=== PATIENT | female | born 2005 | race Caucasian/White ===

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

== ENCOUNTER 2025-01-30 09:37 | Outpatient (CLI) | payer OTHER, SELFPAY ==
--- OUTSIDE RECORDS SUMMARY | 2019-11-22 10:00 | XMS_ITS | Continuity of Care Document ---
Author Organization [facility] Address [address] [place] [address] Phone Care Team Providers Care Public Relations Consultant Name Role Phone Luis PT,MPT,ATC, Anjum Unavailable Unavai lable Procedures Procedure Date Therapeutic Activities Therapeutic Exercise Therapeutic Activities Therapeutic Exercise PT Evaluation Moderate Complexity Therapeutic Activities Therapeutic Exercise Advance Directives Directive Yes / No Effective Date File Name No Information Encounters Encounter Description Practice Location Reason(s) For Visit Diagnoses Date Provider Providers Copied on Encounter [facility], [place], [place], [id number], tel:[phone] [place] No Information 0 Luis [place], [place]. Referring Provider: Karina Rai, [address] [place], [address]. tel:[phone] [facility] [address], [place], [place], [id number], tel:[phone] [place] No Information 0 Luis [place], [place]. Referring Provider: Karina Rai, [address] [place], [address]. tel:[phone] [facility] [address], [place], [place], [id number], tel:[phone] [place] No Information 0 Luis Casillas , [place], [place]. Referring Provider: Karina Rai, [address] [place], [address]. tel:[phone] Family History Family Member Type Diagnosis Age At Onset No Information Payers Payer name Insurance type Covered republican ID Authoriza ticarlos(s) [facility] [id number] Social History Type Description Quantity Date Captured Comments Sex Female Smoking Status No Information Chief Complaint And Reason For Visit No Information Reason For Referral Reason For Referral No Information History Of Present Illness Encounter Date Complaint History Of Prese nt Illness No Information Functional Status Date Functional Assessmen t No Information Instructions Date Instruction Additional Infor mation No Information Assessments Type Assessment Date No Information Patient Care Teams Name Effective Dates (start - stop) Status Members No Information
[2025-01-30 12:59] LABS: Hematocrit 43.0 % (37.0-47.0); Hemoglobin 13.5 g/dL (12.0-15.0); Immature Granulocyte Percent A 0.3 % (0-0.5); Lymphocytes Absolute Auto 3.10 K/mm3 (0.9-3.2); Mean Corpuscular HGB Conc 31.4 g/dl (32-36); Mean Corpuscular Hemoglobin 28.0 pg (26-34); Mean Corpuscular Volume 89.0 fl (80-100); Nucleated Red Blood Cells Absolute Auto 0.000 K/mm3 (0.0-0.012); Nucleated Red Blood Cells Perc 0.0 % (0.0-0.2); Platelet Count Result 340 k/mm3 (150-375); Red Blood Count 4.83 M/mm3 (4.2-5.4); White Blood Count 9.0 K/mm3 (4.5-10.0)
[2025-01-30 13:07] LABS: Alanine Aminotransferase 24 U/L (6-35); Albumin Level 4.4 g/dL (3.5-5.1); Alkaline Phosphatase 78 U/L (38-126); Anion Gap 9 mmol/L (4-12); Aspartate Amino Transferase 47 U/L (14-36); Bilirubin,Total 0.5 mg/dL (0.2-1.3); Blood Urea Nitrogen 11 mg/dL (7-17); Calcium 9.4 mg/dL (8.4-10.2); Carbon Dioxide 22 mmol/L (22-30); Chloride 106 mmol/L (98-107); Estimated Glomerular Filt Rate > 60; Glucose 89 mg/dL (65-110); Potassium 4.5 mmol/L (3.4-5.0); Sodium 137 mmol/L (137-145); Total Protein 8.1 g/dL (6.3-8.2)
[2025-01-30 13:33] LABS: Hemoglobin A1C 5.1 % (<5.7)
[2025-01-30 13:43] LABS: Thyroid Stimulating Hormone 1.840 uIU/mL (0.465-4.680)
--- OUTSIDE RECORDS SUMMARY | 2025-01-30 18:04 | XMS_ITS | Clinical Summary ---
Author Organization [facility] Address [address] [address] Care Team Providers Care Cofounder Name Role Phone Erum Young MD Primary Care Provider [phone] Source Comments [facility],non-owned Affiliates and Associated Physician Practices is amultiple site organization consisting of ambulatory clinics and hospital sitesin [place], [place]. This disclosure is being madepursuant to the Care Everywhere program and may not contain all information available regarding this patient. Last updated 17.[facility] Medications * Be aware that medications may not be up to date on this document. Alwaysverify current medications with the patient. cetirizine (ZYRTEC) 10 MG tablet Take 10 mg by mouth once daily Active diphenhydrAMINE (BENADRYL) 25 MG tablet Take by mouth every 4 hours as needed for Itching Active Active Problems Problem Noted Date Diagnosed Date Closed fracture of distal en d of right radius with routine healing 12/29/2015 Chest pain Resolved Problems Problem Noted Date Diagnosed Date Resolved Date Closed fracture of distal end of right radius 11/10/19 16 12/29/2015 Social History Tobacco Use Types Packs/Day Years Used Date Smoking Tobacco: Never Alcohol Use Standard Drinks/Week Comments No 0 (1 standard drink = 0.6 oz pur e alcohol) Comments No Sex and Gender Information Value Date Recorded Sex Assigned at Not on file Legal Sex Female 12:15 PM CDT Gender Identity Not on file Sexual Orientation Not on file Last Filed Vital Signs Vital Sign Reading Time Taken Comments Blood Pressure 151/70 11/04/2015 4:30 PM CDT Pulse 90 11/04/2015 5:45 PM CDT Temperature 36.9 C (98.4 F) 11/04/2015 5:45 PM CDT Respiratory Rate 20 11/04/2015 5:45 PM CDT Oxygen Saturation 99% 11/04/2015 5:45 PM CDT Inhaled Oxygen Concentration - - Weight 90 kg (198 lb 6.6 oz) 12/29/2015 8:37 AM CDT Height 159.2 cm (5' 2.68) 12/29/2015 8:37 AM CD T Body Mass Index 35.51 12/29/2015 8:37 AM CDT Plan of Treatment Health Maintenance Due Date Last Done Comments HIV SCREENING 01/12/2020 HPV VACCINE (1 - 3-dose series) 01/12/2020 CHLAMYDIA/GONORRHEA SCREENING 2021 MENINGOCOCCAL (Group B) VACC INE SHARED DECISION-MAKING (1 of 2 - Standard) 2021 HEPATITIS C SCREENING 01/07/2023 DTAP/TDAP/TD VACCINES (1 - Tdap) 01/12/2024 HEPATITIS B VACCINE (1 of 3 - 19+ 3-dose series) 01/12/2024 DEPRESSION SCREENING 03/27/2024 COVID-19 VACCINE (1 - 2023-2 5 season) 2024 INFLUENZA VACCINE (#1) 2024 ZOSTER VACCINE (1 of 2) 2055 HIB VACCINE Aged Out No longer eligi ble based on patient's age to complete this topic MENINGOCOCCAL GROUPS A/C/Y/W VACCINE Aged Out No longer eligible b ased on patient's age to complete this topic PNEUMOCOCCAL VACCINE Aged Out No long er eligible based on patient's age to complete this topic Insurance [facility] Care Teams Cofounder Relationship Specialty Start Date End Date Erum Young MD [address] [place] [address] [address] [place] [address] PCP - General Pediatrics 11/04/15
--- OUTSIDE RECORDS SUMMARY | 2025-01-30 18:04 | XMS_ITS | Clinical Summary ---
Author Organization [facility] Address [address] [place] [address] Care Team Providers Care Sonoscope Operator Name Role Phone Erum Young MD Primary Care Provider [phone] Allergies Active Allergy Reactions Criticality Noted Date Comments Tree Nuts Anaphylaxis,Unknown High 05/31/2019 Medications Shannan 24 Fe 1 mg-20 mcg (24)/75 mg (4) per tablet 1 Active traZODone (DESYREL) 50 mg tablet 3 Active calcium citrate-vitamin D2 250 mg-2.5 mcg (100 unit) per tablet Take 1 tablet by mouth 2 (two) times a day Active cholecalciferol (VITAMIN D-3) 5,000 unit capsule daily Active BD Ultra-Fine Short Pen Needle 31 gauge x 5/16 needle 3 Active zonisamide (ZONEGRAN) 100 mg capsule 1 cap orally nightly for 30 days 4 Active ashwagandha extract 120 mg capsule Take by mouth Active magnesium gluconate 200 mg tabletIndication s:hypomagnesemia 1 tablet (200 mg total) Active metFORMIN XR (GLUCOPHAGE XR) 500 mg 24 hr tabletIndication s:PCOS (polycystic ovarian syndrome),Insuli n resistance Take 1 tablet (500 mg total) by mouth 2 (two) times a day after breakfast and dinner 180 tablet 3 4 Active Additional Information Patient not taking.Reported on 12/31/[address] (CYMBALTA) 30 mg capsule Take 1 capsule (30 mg total) by mouth daily [address] (CYMBALTA) 60 mg capsule 4 Active Emgality Pen 120 mg/mL pen injector 1 INJECTION MAINTENANCE DOSE UNDER THE SKIN EVERY 4 WEEKS 4 Active buPROPion XL (WELLBUTRIN XL) 300 mg 24 hr tablet daily Active busPIRone (BUSPAR) 5 mg tablet Take 1 tablet (5 mg total) by mouth 2 (two) times a day 5 Active EPINEPHrine 0.3 mg/0.3 mL auto-injection syringe 5 Active hydrOXYzine (ATARAX) 10 mg tablet daily Active ketoconazole 1 % shampooIndicatio ns:Seborrheic dermatitis of scalp Shampoo daily, leave on for 5-10 minutes, then rinse. 120 mL 2 5 01/01/20 26 Active triamcinolone (KENALOG) 0.1 % creamIndications :Skin Inflammation Apply topically 2 (two) times a day 30 g 5 Active Active Problems Problem Noted Date Diagnosed Date PCOS (polycystic ovarian syndrome) 07/02/2023 Assessment & Plan (07/02/2023 11:03 PM CDT): Counseled on healthy lifestyle habits Recommend to work fat loss goal Take metformin XR 500 mg oral twice a day Continue OCP pills Morbid obesity with BMI of 45.0-49.9, adult 09/2023 Assessment & Plan (07/02/2023 11:03 PM CDT): Counseled on encouraged to work on healthy lifestyle habits Chronic sinusitis 12/06/2022 Allergic rhinitis due to animal hair and dander 06/28/2022 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 06/28/2022 Chest pain 06/28/2022 Allergic rhinitis 06/28/2022 Dermatitis due to food taken internally 06/29/19 23 Closed fracture of distal en d of right radius with routine healing 12/29/2015 Encounters Date Type Department Care Team Description 12/31/2024 4:00 PM CDT Office Visit [facility] at [address] [address] Chelsea Parisi, PERSONAL ASSISTANT Seborrheic dermatitis of scalp (Primary Dx) from Last 3 Months Medical History Medical History Date Comments PCOS (polycystic ovarian syndrome) Morbid obesity with BMI of 45.0-49.9, adult (HCC ) Family History Medical History Relation Name Comments Diabetes Father Hypertension Father Migraines Father Diabetes Other Hypertension Other Relation Name Status Comments Father Other Social History Tobacco Use Types Packs/Day Years Used Date Smoking Tobacco: Never Smokeless Tobacco: Never Comments Unknown Sex and Gender Information Value Date Recorded Sex Assigned at Not on file 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 Gender Identity Not on file Sexual Orientation Not on file Last Filed Vital Signs Vital Sign Reading Time Taken Comments Blood Pressure 126/82 12/31/2024 3:45 PM CDT Pulse 89 12/31/2024 3:45 PM CDT Temperature 36.6 C (97.8 F) 12/31/2024 3:45 PM CDT Respiratory Rate 16 12/31/2024 3:45 PM CDT Oxygen Saturation 98% 12/31/2024 3:45 PM CDT Inhaled Oxygen Concentration - - Weight 131.5 kg (290 lb) 12/31/2024 3:45 PM CDT Height 167.6 cm (5' 6) 07/31/2023 9:25 AM CDT Body Mass Index 46.81 07/31/2023 9:25 AM CDT Plan of Treatment Health Maintenance Due Date Last Done Comments Depression Screening 2005 Hepatitis C Screening 2005 Meningococcal B Vaccine (2 of 2 - Bexsero SCDM 2-dose series) 08/17/2021 02/17/2021, 02/17/2021 Regular Well Visit/Exam 18-64 2023 Covid-19 Vaccine ( season) 2024 04/14/2021, 09/03/2020, 08/09/2020 Influenza Vaccine (#1) 2024 , 01/07/2020, 01/30/2019, Additional history exists DTaP/Tdap/Td Vaccine (7 - Td or Tdap) 12/21/2025 12/22/2015, 06/30/2010, 07/13/2006, Additional history exists Hepatitis B Screening Completed 2005 , 2005, 2005 Varicella Vaccines Completed 06/30/2010, 01/18/2006 Meningococcal Vaccine Aged Out 10/24/2016 No fabienne duyen eligible based on patient's age to complete this topic HPV Vaccines Completed 01/30/2019, 01/22/2018 Pneumococcal vaccine <65 Completed 023, 01/18/2006, 2005, Additional history exists Insurance [facility]/PPO Address: [address] [place] [address] [facility] CHOICE PLUS [facility] HMO/PPO Address: [address] [address] [place] [id number] [facility] CHOICE [employer] H[facility]/PPO Address: [address] [address] [place] [address] [place] [address] [facility] CHOICE PLUS [facility] H[facility]/PPO Address: [address] [place] [address] Care Teams Sonoscope Operator Relationship Specialty Start Date End Date Erum Young MD [address] [place] [address] PCP - General Pediatrics 06/03/20
--- OUTSIDE RECORDS SUMMARY | 2025-01-30 18:04 | XMS_ITS | Encounter Summary ---
Author Organization [employer] Address 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
--- OUTSIDE RECORDS SUMMARY | 2025-01-30 18:04 | XMS_ITS | Encounter Summary ---
Author Organization [employer] Address 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
--- OUTSIDE RECORDS SUMMARY | 2025-01-30 18:04 | XMS_ITS | Encounter Summary ---
Author Organization [employer] Address 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
--- OUTSIDE RECORDS SUMMARY | 2025-01-30 18:04 | XMS_ITS | Clinical Summary ---
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
== END 2025-01-30 09:38 | disposition home or self-care (01) ==
LOC: ANHGOSHLAB 09:38
PROVIDERS: PCP Nurse Practitioner; Visit Provider Nurse Practitioner
DX: E66.01 Morbid (severe) obesity due to excess calories (principal)
CPT/HCPCS: 36415; 80053; 83036; 84443; 85025

== ENCOUNTER 2025-03-17 15:15 | Emergency (ER) | payer OTHER, SELFPAY ==
--- OUTSIDE RECORDS SUMMARY | 2023-10-12 03:15 | XMS_ITS ---
Author Organization [facility] ([address]) Address [address] [place] [address] Care Team Providers Care Publicity Director Name Role Phone Erum Young Primary Care Provider UnavailRich De La Cruz Unavailable [phone] Bert Raines Unavailable Unavailable Dr. Simba Villanueva Unavailable [phone] REASON FOR VISIT Headache follow-up Encounters Encounter Location Date Provider Diagnosis [facility] [address] [place] [address] 10/12/2023 Simba Villanueva Plan Of Treatment No Information Progress Notes * Delonte AGUILAROB:2005 (20 yo F)Acc No.[id number]:10/12/2023 Progress Notes Patient: Marce MEZA Provider: Qing Villanueva MD :2005 A ge:18 Y S ex:Female Date:10/12/2023 Address:[address] [place] [address] [address] [id number] Pcp:Erum Young Subjective: * Chief Complaints: * 1 . Headache follow-up. * Medical History: Objective: * Vitals: Assessment: Plan: * Treatment: * Billing Information: * Visit Code: * Procedure Codes: * Electronic signature of Dr. Simba Villanueva MD on 03/17/2025 at 04:52 PM WOOLEN TESTER Sign off status: Pending * Provider: Qing Villanueva MD Date: 10/12/2023 Generated for Ren mart/Laureen/Mara on: 1 05/18/2024 04:52 PM WOOLEN TESTER
--- OUTSIDE RECORDS SUMMARY | 2025-02-21 04:00 | XMS_ITS ---
Author Organization [facility] [place] [facility] Address [facility] [address] [facility] [address] [place] [address] Care Team Providers Care Software Engineer Web Applications Name Role Phone Dahlia Avalos Unavailable [phone] REASON FOR VISIT 6 week f/u Social History Sex Assigned At : Social History Observation Description Sex Assigned At Female Encounters Encounter Location Date Provider Diagnosis [facility] [employer] [facility] [address] [address] 02/21/2025 Dahlia Avalos Plan Of Treatment No Information Progress Notes * Marce AGUILAR GDOB: 5 (20 yo F)Acc No.[id number]:02/21/2025 Patient: Qing bailey Marce Arcos Provider: TONY JAIMES :2005 A ge:20 Y S ex:Female Date:02/21/2025 Phone: Address:[address] [facility] Subjective: * Chief Complaints: * 6 week f/u Billing Information: * Procedure Codes: * Electronic signature of TONY La on 03/17/2025 at 04:52 PM CONTOUR SANDER Sign off status: Pending * Provider: TONY JAIMES Date: 04/23/2024 Generated for Ren mart/Laureen/eTransmitting on: 05/18/2024 04:52 PM CONTOUR SANDER
--- NOTE | ~2025-03-17 | XR_ITS ---
XR lumbar spine 2-3V 03/17/2025 17:05 Indication: Back pain status post injury Procedure: 3 views lumbar spine Comparison: No prior studies for comparison. Findings: Vertebral body heights are maintained. No fracture, subluxation or dislocation. No evidence for spondylolisthesis. No significant disc narrowing. Pedicles intact. Impression: 1: No acute abnormality of the lumbar spine. Reviewed, dictated and finalized at location O. NATION OPERATOR Impression: 1: No acute abnormality of the lumbar spine.
[2025-03-17 15:37] VITALS: BP 127/79; PULSE 114; RESP 18; TEMP 36.3; O2SAT 100
--- OUTSIDE RECORDS SUMMARY | 2025-03-17 16:52 | XMS_ITS | Patient Health Record ---
Author Organization [facility] Address [address] [facility] [address] [place] [address] Care Team Providers Care Server Programmer Name Role Phone Dahlia Avalos Unavailable [phone] Allergies Allergen (clinical drug ingredient) Drug/Non Drug Allergy documented on EMR Reaction Allergy Type Onset Date Status Tree Nuts Unknown Allergy Active Results Component Value Reference Range Flag Notes UDT Reviewed date:05/29/2024 04:30:49 PM Interpretation: Performing Lab: Notes/Report: Amphetamine (AMP) N 0 - 1000 ng/ml Buprenorphine (BUP) N 0 - 10 ng/ml Oxazepam (BZO) N 0 - 300 ng/ml Cocaine (KAYLA) N 0 - 300 ng/ml Methamphetamine (mAMP) N 0 - 300 ng/ml Methylenedioxymethamphetamin e (MDMA) N 0 - 500 ng/ml Morphine (MOP) N 0 - 25 ng/ml Methadone (MTD) N 0 - 300 ng/ml Oxycodone (OXY) N 0 - 300 ng/ml THC P 0 - 50 ng/ml x N 0 - 1000 ng/ml x N 0 - 1000 ng/ml x N 0 - 300 ng/ml x N 0 - 300 ng/ml x N 0 - 300 ng/ml DRUG MONITOR, MARIJUANA META B, QN, URINE ([id number]) Reviewed date:06/10/2024 04:28:18 PM Interpretation: Performing Lab:[facility], [facility] [address] Jose Antonio Murphy, Director - [address] [facility] Notes/Report: FASTING: NO Marijuana Metabolite 401 <5 ng/mL H medMATCH Marijuana Metab INCONSISTENT A Marijuana Comments See Olamide awad Notes, LDT Notes Notes and Comments This drug testing is for medical treatment only. Analysis was performed as non-forensic testing and these results should be used only by healthcare providers to render diagnosis or treatment, or to monitor progress of medical conditions. Marijuana Notes: Marijuana Metabolite detected is consistent with exposure to Marijuana (THC) and/or hemp derived products. Some jurisdictions do not include hemp within the definition of Marijuana. LDT Notes: Confirmation tests were developed and their analytical performance characteristics have been determined by [facility]. It has not been cleared or approved by the FDA. This assay has been validated pursuant to the CLIA regulations and is used for clinical purposes. medMATCH(R) enables providers to identify if drug use is consistent or inconsistent with a corresponding prescribed medication(s) list. Healthcare Providers needing Interpretation assistance, please contact us at [phone] ( ) M-F, 8am to 10pm EST PRESCRIBED DRUGS, medMATCH(R ) ([id number]) Reviewed date:06/10/2024 04:28:18 PM Interpretation: Performing Lab:[id number], [id number] Shiloh Valencia MD Notes/Report: FASTING: NO medMATCH Summary Prescribed Prescribed Not Prescribed Consistent Inconsistent Inconsistent Marijuana Metabolite Reason For Referral No Information Medications Medication SIG (Take, Route, Frequency, Duration) Notes Start Date End Date Status buPROPion HCl ER (XL) 300 MG Tablet Extended Release 24 Hour 1 tablet in the morning Orally Once a day; Duration: 90 days total daily dose 450mg 01/08/2025 Active Vilazodone HCl 10 MG Tablet TAKE 1 TABLET BY MOUTH EVERY DAY WITH FOOD; Duration: 30 Active Vilazodone HCl 20 MG Tablet 1 tablet with food Orally Once a day; Duration: 90 days 01/08/2025 Active Emgality 120 MG/ML Solution Prefilled Syringe INJECT 1 PEN UNDER THE SKIN EVERY 4 WEEKS FOR MAINTENANCE Subcutaneous; Duration: 84 Days Active buPROPion HCl ER (XL) 150 MG Tablet Extended Release 24 Hour 1 tablet in the morning Orally Once a day; Duration: 90 days total daily dose 450mg 01/08/2025 Active Shannan 24 Fe 1-20 MG-MCG(24) Tablet Oral; Duration: 90 Days Active hydrOXYzine HCl 10 MG Tablet 1 tablet as needed Orally Once a day 01/08/2025 Active traZODone HCl 50 MG Tablet 1 tablet at b edtime Oral Once a day; Duration: 90 days 01/08/2025 Active Social History Tobacco Use: Social History Observation Description Date Details (start date - stop date) Never Smoker NA - NA Sex Assigned At : Social History Observation Description Sex Assigned At Female Social History Miscellaneous: Social Info Question Answer Notes Safety issues: Are there any firearms in the house? No Social History Social Info Question Answer Notes Household: Marital Status: Single Number of Adults in household: 2 Number of Children in Household: 0 Level of Education: Not Finished College Drug/Alcohol: Social Info Question Answer Notes Drugs Have you used drugs other than those for medical reasons in the past 12 months? Yes Methamphetamine? No Crack? No LSD? No Ecstacy? No Prescription opiates? No Marijuana? Yes Ketamine? No PCP? No Is there a minor (18 years or younger) at risk at home? No Are you still using? Yes Do you want treatment? No AUDIT-C (Standard) Points 2 Interpretation Positive Did you have a drink containing alcohol in the p ast year? Yes How often did you have six or more drinks on one occasion in the past year? Never (0 point) How many drinks did you have on a typical day when you were drinking in the past year? 3 or 4 drinks (1 point) How often did you have a drink containing alcohol in the past year? 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 Problem Generalized anxiety disorder (16251226) Generalized anxiety disorder (F41.1) Active confirmed Vital Signs Heart Rate 83 /min 01/08/2025 Height-cm 170.18 cm 01/08/2025 Blood pressure diastolic 80 mm Hg 01/08/2025 Weight-kg 130.64 kg 01/08/2025 BMI Percentile 99.57 % 01/08/2025 Height 67 in 01/08/2025 Blood pressure systolic 127 mm Hg 01/08/2025 Weight 288 lbs 01/08/2025 BMI 45.1 kg/m2 01/08/2025 Encounters Encounter Location Date Provider Diagnosis [place] [id number] [place] [address] 05/29/2024 Dalhia Kurilla Major depressive disorder, recurrent severe without psychotic features F33.2 and Generalized anxiety disorder F41.1 [place] [address] [facility] [address] [place] [address] 07/10/2024 Dahliadeangelo Avalos Encounter for screen ing for depression Z13.31 ; Encounter for screening for cardiovascular disorders Z13.6 ; Major depressive disorder, recurrent severe without psychotic features F33.2 and Generalized anxiety disorder F41.1 [place] [address] [facility] [address] [place] [address] 09/13/2024 Dahlia Kurilla Major depressive disorder, recurrent severe without psychotic features F33.2 ; Generalized anxiety disorder F41.1 ; Negative depression screening Z13.31 ; Encounter for screening for cardiovascular disorders Z13.6 and Encounter for screening for depression Z13.31 [place] [address] [facility] [address] [place] [address] 11/08/2024 Dahlia Kurilla Major depressive disorder, recurrent severe without psychotic features F33.2 and Generalized anxiety disorder F41.1 [place] [address] [facility] [address] [place] [address] 01/08/2025 Dahlia Kurilla Major depressive disorder, recurrent severe without psychotic features F33.2 and Generalized anxiety disorder F41.1 [place] [address] [facility] [address] [place] [address] 08/25/2024 Dahlia Kurilla [place] [address] [facility] [address] [place] [address] 08/27/2024 Dahlia Kurilla [place] [address] [place] [address] 11/18/2024 Dahlia Kurilla Generalized anxiety disorder F41.1 [place] [address] [facility] [address] [place] [address] 11/19/2024 Dahlia Avalos Assessments Encounter Date Diagnosis (ICD Code) Assessment Notes Treatment Notes Treatment Clinical Notes Section Notes 05/29/2024 Major depressive disorder, recurrent severe without psychotic features (ICD-10 - F33.2) Common side effects of Wellbutrin include insomnia, increased anxiety, nausea, dizziness, decreased appetite, restlessness, irritability and anger, increased sweating or hot flashes, tremors, joint pain. Wellbutrin is not recommended in individuals with a history of seizures. If side effects persist, please contact the office. 05/29/2024 Generalized anxiety disorder (ICD-10 - F41.1) 07/10/2024 Encounter for screening for depression (ICD-10 - Z13.31) 09/13/2024 Major depressive disorder, recurrent severe without psychotic features (ICD-10 - F33.2) Common side effects of Wellbutrin include insomnia, increased anxiety, nausea, dizziness, decreased appetite, restlessness, irritability and anger, increased sweating or hot flashes, tremors, joint pain. Wellbutrin is not recommended in individuals with a history of seizures. If side effects persist, please contact the office. 09/13/2024 Generalized anxiety disorder (ICD-10 - F41.1) 11/08/2024 Major depressive disorder, recurrent severe without psychotic features (ICD-10 - F33.2) Common side effects of Wellbutrin include insomnia, increased anxiety, nausea, dizziness, decreased appetite, restlessness, irritability and anger, increased sweating or hot flashes, tremors, joint pain. Wellbutrin is not recommended in individuals with a history of seizures. If side effects persist, please contact the office. 11/18/2024 Generalized anxiety disorder (ICD-10 - F41.1) 01/08/2025 Major depressive disorder, recurrent severe without psychotic features (ICD-10 - F33.2) Common side effects of Wellbutrin include insomnia, increased anxiety, nausea, dizziness, decreased appetite, restlessness, irritability and anger, increased sweating or hot flashes, tremors, joint pain. Wellbutrin is not recommended in individuals with a history of seizures. If side effects persist, please contact the office. 01/08/2025 Generalized anxiety disorder (ICD-10 - F41.1) 11/08/2024 Generalized anxiety disorder (ICD-10 - F41.1) 07/10/2024 Encounter for screening for cardiovascular disorders (ICD-10 - Z13.6) 09/13/2024 Negative depression screening (ICD-10 - Z13.31) 09/13/2024 Encounter for screening for cardiovascular disorders (ICD-10 - Z13.6) 07/10/2024 Major depressive disorder, recurrent severe without psychotic features (ICD-10 - F33.2) Common side effects of Wellbutrin include insomnia, increased anxiety, nausea, dizziness, decreased appetite, restlessness, irritability and anger, increased sweating or hot flashes, tremors, joint pain. Wellbutrin is not recommended in individuals with a history of seizures. If side effects persist, please contact the office. 07/10/2024 Generalized anxiety disorder (ICD-10 - F41.1) 09/13/2024 Encounter for screening for depression (ICD-10 - Z13.31) 05/29/2024 Other Start Wellbutrin 150mg daily for depression. continue trazodone 50mg qHS for sleep Continue hydroxyzine 10mg PRN for anxiety. Patient educated on all medications including potential benefits, side effects, risks. Educated on proper dosing schedule and importance of compliance. -Assessment and treatment plan reviewed with patient. -Compliance with treatment plan importance discussed. -Discussed the risks/benefits of this medication -Discussed medication side effects. -Contact office if symptoms worsen. -Discussed that it can take up to 6-8 weeks to see full therapeutic effects of psychotropic medications. -Crisis prevention hotline 988. 07/10/2024 Other Increase Wellbutrin to 300mg daily for mood Patient educated on all medications including potential benefits, side effects, risks. Educated on proper dosing schedule and importance of compliance. -Assessment and treatment plan reviewed with patient. -Compliance with treatment plan importance discussed. -Discussed the risks/benefits of this medication -Discussed medication side effects. -Contact office if symptoms worsen. -Discussed that it can take up to 6-8 weeks to see full therapeutic effects of psychotropic medications. -Crisis prevention hotline 988. 09/13/2024 Other Increase Wellburin to 450mg daily for mood, anxiety Patient educated on all medications including potential benefits, side effects, risks. Educated on proper dosing schedule and importance of compliance. -Assessment and treatment plan reviewed with patient. -Compliance with treatment plan importance discussed. -Discussed the risks/benefits of this medication -Discussed medication side effects. -Contact office if symptoms worsen. -Discussed that it can take up to 6-8 weeks to see full therapeutic effects of psychotropic medications. -Crisis prevention hotline 988. 11/08/2024 Other Start Buspar 5mg BID for anxiety Patient educated on all medications including potential benefits, side effects, risks. Educated on proper dosing schedule and importance of compliance. -Assessment and treatment plan reviewed with patient. -Compliance with treatment plan importance discussed. -Discussed the risks/benefits of this medication -Discussed medication side effects. -Contact office if symptoms worsen. -Discussed that it can take up to 6-8 weeks to see full therapeutic effects of psychotropic medications. -Crisis prevention [facility] 988. 01/08/2025 Other Increase vilazodone to 20mg daily for anxiety Patient educated on all medications including potential benefits, side effects, risks. Educated on proper dosing schedule and importance of compliance. -Assessment and treatment plan reviewed with patient. -Compliance with treatment plan importance discussed. -Discussed the risks/benefits of this medication -Discussed medication side effects. -Contact office if symptoms worsen. -Discussed that it can take up to 6-8 weeks to see full therapeutic effects of psychotropic medications. -Crisis prevention [facility] 988. Plan Of Treatment No Information Insurance Providers Payer Name Payer Address Payer Phone Subscriber Number Group Number Insured Name Patient Relationship to Insured Coverage Start Date Coverage End Date [employer] [address] [place] [phone] [id number] Marce Kyle Self - patient is the insured Medical (General) History Medical History History ICD Code Past Psychiatric History: Anxiety Disord er abdominal aortic aneurysm: No atrial fibrillation: No chronic fatigue syndrome: No essential tremor: No hyperlipidemia: No hypertension: No Parkinson's disease: No restless leg syndrome: No stroke: No subdural hematoma: No type 1 diabetes mellitus: No type 2 diabetes mellitus: No vitamin B12 deficiency: No vitamin D deficiency: No
--- OUTSIDE RECORDS SUMMARY | 2025-03-17 16:52 | XMS_ITS | Clinical Summary ---
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
--- OUTSIDE RECORDS SUMMARY | 2025-03-17 16:52 | XMS_ITS | Patient Health Record ---
Author Organization [facility] [place] ([address]) Address [address] [place] [address] Care Team Providers Care Parts Counter Specialist Name Role Phone Erum Primary Care Provider UnavailRich De La Cruz Unavailable [phone] Bert Raines Unavailable Unavailable Iris Roman Unavailable [phone] Allergies No Known Allergies Reason For Referral No Information Medications Medication SIG (Take, Route, Frequency, Duration) Notes Start Date End Date Status Magnesium 100 MG 1 capsule with food Orally Three times a day Active Propranolol HCl 10 MG 1 tablet Orally at bedtime; Duration: 30 days 06/13/2024 Active MEDROL DOSEPAK 4 mg 6 tabs Day 1, 5 tabs Day 2, 4 tabs Day 3, 3 tabs Day 4, 2 tabs Day 5, 1 tab Day 6, then stop, orally take full daily dose in AM with food as directed,; Duration: 6 days 08/31/2023 Not-Taking Cetirizine HCl 10 MG 1 tab(s) orally once a day Not-Taking AUVI -Q 0.3 mg as directed intramuscularly once; Duration: 30 days Not-Taking FLUTICASONE NASAL 50 mcg/inh 2 spray(s) in each nostril Qday; Duration: 30 days Not-Taking buPROPion HCl ER (XL) 150 MG Oral; Duration: 30 Days Active Medrol 4 MG 6 tabs Day 1, 5 tabs Day 2, 4 tabs Day 3, 3 tabs Day 4, 2 tabs Day 5, 1 tab Day 6, then stop, orally take full daily dose in AM with food as directed,; Duration: 6 days 08/31/2023 Active NURTEC ODT 75 MG 1 TAB(S) ORALLY ONCE PRN *Please review for potential replacement for e-prescription and drug interaction check* Active Inositol 650 MG 2 tab(s) orally once a day Not-Taking CETIRIZINE HYDROCHLORIDE 10 mg 1 tab(s) orally once a day Not-Taking Topiramate 25 MG 1 qHS x 1 wk, then 2 qHS x 1 wk, then 3 qHS orally as directed; Duration: 30 day(s) 01/05/2023 Not-Taking EMGALITY PREFILLED PEN GNLM 120 MG/ML 2 INJECTIONS FOR THE FIRST MONTH LOADING DOSE SUBCUTANEOUSLY ONCE; Duration: 28 DAYS *Please review for potential replacement for e-prescription and drug interaction check* 06/07/2023 Not-Taking EpiPen 2-Yan 0.3 MG/0.3ML as directed intramuscularly once; Duration: 1 dose(s) Active Vitamin C 500 MG 1 tab(s) orally once a day Active TOPIRAMATE 25 mg 1 qHS x 1 wk, then 2 qHS x 1 wk, then 3 qHS orally as directed; Duration: 30 day(s) 01/05/2023 Not-Taking Ashwagandha *Please review and pick correct strength-formula tion from [employer] options. If intended option is not shown, discontinue and re-order from Quick Search* Active ESCITALOPRAM 20 MG N ot-Taking traZODone HCl 50 MG as directed orally Active Sandra 24 Fe WITH IRON 20 MCG-1 MG *Please review and pick correct strength-formula tion from [employer] options. If intended option is not shown, discontinue and re-order from Quick Search* Active Escitalopram Oxalate 20 MG Not-Taking Fluticasone Propionate 50 MCG/ACT 2 spray(s) in each nostril Qday; Duration: 30 days Active SANDRA 24 FE with iron 20 mcg-1 mg Not-Taking EPIPEN 2-YAN 0.3 mg as directed intramuscularly once; Duration: 1 dose(s) Active INOSITOL 650 mg 2 tab(s) orally once a day Not-Taking Vitamin D3 125 MCG 1 CAP(S) ORALLY ONCE A DAY *Please review and pick correct strength-formula tion from [employer] options. If intended option is not shown, discontinue and re-order from Quick Search* Active TRAZODONE 50 mg as directed orally Not-Taking Auvi-Q 0.3 MG/0.3ML as directed intramuscularly once; Duration: 30 days Active DULOXETINE 60 mg 1 cap(s) orally once a day Not-Taking Emgality 120 MG/ML 1 injection as maintenance dose Subcutaneous once every 4 weeks; Duration: 84 days 07/08/2024 Active VITAMIN D3 125 mcg 1 cap(s) orally once a day Not-Taking metFORMIN HCl 1000 MG 1 tablet with a meal Orally Once a day Active VITAMIN C 500 mg 1 tab(s) orally once a day Not-Taking ASHWAGANDHA Not-Taki ng Immunizations Vaccine Route Administration Date Status Comme nts DTaP < 7 y/o Unknown 08/26/2011 Administered Portal Inf ormation NOC Pneumovax 23 IM Intramuscular 11/17/2022 Administered NOC Tdap Unknown 08/26/2011 Administered Portal Infor mation Influenza Unknown 2019 Administered Portal Infor mation Pedvax Hib IM Intramuscular 11/17/2022 Administered NOC 0539-6047 Afluria Quad (MDV) 3 years and older IM Intramuscular 12/22/2022 Administered Social History Tobacco Use: Social History Observation Description Date Details (start date - stop date) Never Smoker NA - NA Smoking Smart Form: Question Answer Notes Additional Findings:Tobacco Non-User Aggressive non-smoker Are you a: never smoker Problems Problem Type SNOMED Code ICD Code Onset Dates Problem Status W/U Status Risk Notes Problem Polycystic ovary syndrome (disorder) (782753100) Polycystic ovarian syndrome (E28.2) Active confirmed Problem Dysthymia (20559478) Dysthymic disorder (F34.1) Active confirmed Problem Chronic migraine without aura, non-refractory (disorder) (14780804997300 0) Migraine without aura, not intractable, without status migrainosus (G43.009) Active confirmed Problem Migraine with aura (6891883) Migraine with aura, not intractable, without status migrainosus (G43.109) Active confirmed Problem Chronic migraine without aura, non-intractable (75469021138381 0) Chronic migraine without aura, not intractable, without status migrainosus (G43.709) Active confirmed Problem Drug induced headache (02621010754052 4) Drug-induced headache, not elsewhere classified, not intractable (G44.40) Active confirmed Problem Hypersomnia (09391920) Hypersomnia, unspecified (G47.10) Active confirmed Problem Sleep apnea (37872241) Sleep apnea, unspecified (G47.30) Active confirmed Problem Obstructive sleep apnea syndrome (disorder) (22691297) Obstructive sleep apnea (adult) (pediatric) (G47.33) Active confirmed Problem Allergic rhinitis caused by animal hair and dander (88414998643395 9) Allergic rhinitis due to animal (cat) (dog) hair and dander (J30.81) Active confirmed Problem Allergic rhinitis (62004702) Other allergic rhinitis (J30.89) Active confirmed Problem Chronic sinusitis (11403370) Other chronic sinusitis (J32.8) Active confirmed Problem Chronic sinusitis (55850461) Chronic sinusitis, unspecified (J32.9) Active confirmed Problem Cervicalgia (57044626) Cervicalgia (M54.2) Active confirmed Problem Snoring (11794923) Snoring (R06.83) Active confirmed Problem Anaphylactic reaction due to tree nuts and seeds, 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) Active confirmed Problem Chronic rhinitis (02751538) Chronic rhinitis (J31.0) Active confirmed Problem Ingestion dermatitis caused by food (678721165) Dermatitis due to ingested food (L27.2) Active confirmed Problem Muscle pain (97465104) Myalgia, unspecified site (M79.10) Active confirmed Problem Obesity (903903653) Obesity, unspecified (E66.9) Active confirmed Problem Sleep disorder (15432719) Other sleep disorders (G47.8) Active confirmed Problem Hypersomnia (93761869) Hypersomnia, unspecified (G47.10) Active confirmed Vital Signs Blood pressure diastolic 62 mm Hg 06/13/2024 Oximetry 100 % 06/13/2024 Height 66 in 06/13/2024 Blood pressure systolic 136 mm Hg 06/13/2024 Weight 296.0 lbs 06/13/2024 BMI 47.77 kg/m2 06/13/2024 Encounters Encounter Location Date Provider Diagnosis [facility] [address] [place] [address] 06/13/2024 Iris Roman Migraine without aura, not intractable, without status migrainosus G43.009 ; Cervicalgia M54.2 and Myalgia, unspecified site M79.10 [facility] [address] [place] [address] 12/03/2024 Rich Gamez [facility] [address] [place] [address] 07/16/2024 Iris Roman [facility] [address] [place] [address] 07/10/2024 Iris Roman [facility] [address] [place] [address] 07/09/2024 Iris Roman [facility] [address] [place] [address] 07/05/2024 Iris Roman Migraine without aura, not intractable, without status migrainosus G43.009 [facility] [address] [place] [address] 05/08/2024 Iris Roman Assessments Encounter Date Diagnosis (ICD Code) Assessment Notes Treatment Notes Treatment Clinical Notes Section Notes 06/13/2024 Migraine without aura, not intractable, without status migrainosus (ICD-10 - G43.009) -Abortive treatment plan: Continue Nurtec.-Preventi ve treatment plan: Continue Emgality. Start Propranolol 10 mg qhs, with further titration as necessary/tolera pramod-Educated the patient on migraine lifestyle recommendations. I recommended the following measures: avoid known triggers of migraine, drink > 100 fluid ounces of non-caffeinated fluid daily, limit caffeine to 2 servings/day, sleep 7-8 hours/night and address any sleep concerns with us and report symptoms of snoring or fatigue; healthy management of stress; avoid treating headaches more than 2 days/week with abortive medication unless approved in treatment plan; can take Riboflavin 400 mg and Magnesium 500 mg daily as supplements; keep scheduled follow-up appointments She had been responding to Emgality. Now in the last 2 weeks more effects, some of which sound cervicogenic. I think she would benefit from PT for her neck. If this does not improve pattern will consider changing Emgality to Botox 06/13/2024 Cervicalgia (ICD-10 - M54.2) Continue PT HEP. Consider referral to PT for dry needling. She had been responding to Emgality. Now in the last 2 weeks more effects, some of which sound cervicogenic. I think she would benefit from PT for her neck. If this does not improve pattern will consider changing Emgality to Botox 07/05/2024 Migraine without aura, not intractable, without status migrainosus (ICD-10 - G43.009) 06/13/2024 Myalgia, unspecified site (ICD-10 - M79.10) Continue PT HEP. Consider referral to PT for dry needling. She had been responding to Emgality. Now in the last 2 weeks more effects, some of which sound cervicogenic. I think she would benefit from PT for her neck. If this does not improve pattern will consider changing Emgality to Botox Plan Of Treatment Pending Test Test Name Order Date Sleep Study WatchPAT 300 (Zoll-Bruce) 1 Insurance Providers Payer Name Payer Address Payer Phone Subscriber Number Group Number Insured Name Patient Relationship to Insured Coverage Start Date Coverage End Date [facility] Choice Plus [address] [address] [place] [address] [id number] Anahy Kyle Child - Insured has Financial Responsibility 4 Medical (General) History Medical History History ICD Code Dermatitis due to ingested food L27.2 Anaphylactic reaction due to tree nuts a nd seeds, initial encounter T78.05XA Chronic rhinitis J31.0 Allergic rhinitis due to animal (cat) (d og) hair and dander J30.81 Other allergic rhinitis J30.89 Polycystic ovarian syndrome E28.2 Dysthymic disorder F34.1 Migraine Surgical History Surgery Date(Month/Year) Hospitalization History Reason Date(Month/Year) RSV 2005
--- OUTSIDE RECORDS SUMMARY | 2025-03-17 16:52 | XMS_ITS | Clinical Summary ---
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
--- OUTSIDE RECORDS SUMMARY | 2025-03-17 16:52 | XMS_ITS | Encounter Summary ---
Author Organization [employer] Address 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
--- OUTSIDE RECORDS SUMMARY | 2025-03-17 16:53 | XMS_ITS | Clinical Summary ---
Author Organization [facility] Address [address] [facility] [address] [address] Care Team Providers Care Motion Picture Camera Operator Name Role Phone Erum Young MD Primary Care Provider [phone] Source Comments [facility],non-owned Affiliates and Associated Physician Practices is amultiple site organization consisting of ambulatory clinics and hospital sitesin [place], [place] and [place]. This disclosure is being madepursuant to the Care Everywhere program and may not contain all information available regarding this patient. Last updated 17.[facility] Medications * Be aware that medications may [...] DEPRESSION SCREENING 03/27/2024 COVID-19 VACCINE (1 - 2024-2 6 season) 2024 INFLUENZA VACCINE (#1) 2024 ZOSTER VACCINE (1 of 2) 2055 HIB VACCINE Aged Out No longer eligi ble based on patient's age to complete this topic MENINGOCOCCAL GROUPS A/C/Y/W VACCINE Aged Out No longer eligible b ased on patient's age to complete this topic PNEUMOCOCCAL VACCINE Aged Out No long er eligible based on patient's age to complete this topic Insurance [facility] Care Teams Motion Picture Camera Operator Relationship Specialty Start Date End Date Erum Young MD [address] [place] [address] [address] [place] [address] PCP - General Pediatrics 11/04/15
--- OUTSIDE RECORDS SUMMARY | 2025-03-17 16:53 | XMS_ITS | Encounter Summary ---
Author Organization [employer] Address 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
--- OUTSIDE RECORDS SUMMARY | 2025-03-17 16:53 | XMS_ITS | Encounter Summary ---
Author Organization [facility] Address 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
--- NOTE | 2025-03-17 17:04 | ED.GENADULT ---
HPI - General Adult General Chief complaint: Back Pain/Injury Stated complaint: lower back pain, acute injury at gym Time Seen by Provider: 03/17/25 15:40 History of Present Illness HPI narrative: 20-year-old female presents to the emergency department for evaluation for lower back pain. Patient was at the gym when she was doing lifts when she over arched her back and felt a pop in her lower back. Patient states he does have lower back pain that is worsened when she moves her right leg. Patient denies any associated numbness or weakness. Patient denies any bowel or bladder habits. Patient states she did have an episode of emesis secondary to the intensity of the pain. Patient denies taking medications for pain control prior to arrival. Related Data Home Medications ?Medication ?Instructions ?Recorded ?Confirmed ?Last Taken ?Type bupropion HCl 150 mg 24 hr tablet, 300 mg PO DAILY 08/09/24 01/30/25 Unknown History extended release trazodone 50 mg tablet 75 mg PO QHS 08/09/24 01/30/25 Unknown History Allergies Allergy/AdvReac Type Severity Reaction Status Date / Time tree nut Allergy Severe Anaphylaxis Verified 03/17/25 15:33 walnut Allergy Anaphylaxis Verified 03/17/25 15:33 Review of Systems Review of Systems: All systems reviewed & are unremarkable except as noted in HPI and below PMFSH Past Medical History Medical History Anxiety Allergies Migraine Family History Family History Sibling Food allergy, peanut Asthma Anxiety and depression Mother Hypertension Anxiety and depression Father Diabetes mellitus Hypertension Anxiety and depression Grandparent Hypertension Diabetes mellitus Social History Social History Smoking status: Never smoker Living arrangements: with family Occupation/Education: student Gender identity (if verbalized by the patient): Female Exam Narrative: APPEARANCE: Well appearing, no pain, no distress, well-nourished. HEAD: normocephalic, atraumatic. EYES: PERRLA/EOMI, conjunctivae clear. NECK: Supple. No adenopathy, no masses. RESPIRATORY: Airway patent, respirations nonlabored. Clear to auscultation bilaterally, no rales, rhonchi, wheezing. CARDIOVASCULAR: Regular rate and rhythm without murmurs rubs or gallops. ABDOMINAL: Soft, nontender, nondistended, normal bowel sounds MUSCULOSKELETAL: lower back tenderness to palpation NEURO: Alert. Cranial nerves II through XII intact. Good gait. Good coordination SKIN: Warm, dry. Normal Color Course Vital Signs Vital signs: Vital Signs Temperature 97.4 F L 03/17/25 15:37 Pulse Rate 114 H 03/17/25 15:37 Respiratory Rate 18 03/17/25 15:37 Blood Pressure 127/79 03/17/25 15:37 Pulse Oximetry 100 03/17/25 15:37 Temperature 97.4 F L 03/17/25 15:37 Pulse Rate 94 03/17/25 17:11 Respiratory Rate 19 03/17/25 17:11 Blood Pressure 135/88 03/17/25 17:11 Pulse Oximetry 99 03/17/25 17:11 MDM MDM Narrative Medical decision making narrative: 20-year-old female presents emergency department for evaluation for lower back pain. Patient is neurovascular intact. X-ray shows no acute fracture dislocation. Patient was provided Medrol Dosepak, Flexeril and narcotic pain medication as needed for home. Patient was treated with IM Toradol and Flexeril in the emergency department. Patient and family were updated on the results of the workup and plan for treatment for home. There also educated on reasons to return to the emergency department. All questions concerns were addressed. Patient is well-appearing at time of discharge. Differential Diagnosis Differential Diagnosis: lumbar fracture, sciatica, lumbar radiculopathy, paraspinal muscle spasm Imaging Data Radiologist's impression: ITS Impressions Lumbar Spine X-Ray 03/17/25 17:19 Impression: 1: No acute abnormality of the lumbar spine. Discharge Plan Discharge Clinical Impression: Back pain Patient Disposition: Home Condition: Stable Instructions: Antibiotic Form, Back Pain (ED), Lower Back Exercises (ED) Additional Instructions: Medrol Dosepak as directed. Ibuprofen for pain control. Tylenol for additional pain control. If Tylenol is not helping with your pain then replace the Tylenol with [place]. Do not take Tylenol and [place] at the same time as both to contain acetaminophen. Have close follow-up with your primary care physician. If you have any worsening symptoms then please call or return to the emergency department. Patient Language: Nepali Prescriptions: New cyclobenzaprine 10 mg tablet 10 mg PO BID PRN (Reason: muscle spasm) Qty: 14 0RF hydrocodone-acetaminophen 5-325 mg tablet 1 tablet PO Q12H PRN (Reason: pain) Qty: 14 0RF No Action cetirizine [Zyrtec] 10 mg tablet 10 mg PO DAILY Qty: 30 0RF bupropion HCl 150 mg tablet extended release 24 hr 300 mg PO DAILY trazodone 50 mg tablet 75 mg PO QHS epinephrine 0.3 mg/0.3 mL auto-injector 0.3 ml IM ONCE PRN (Reason: anaphylaxis) Qty: 2 0RF Rx Instructions: as a single dose; may repeat once Emgality Pen 120 mg/mL pen injector 120 mg subcut MONTHLY Qty: 1 2RF Zepbound 2.5 mg/0.5 mL pen injector 2.5 mg subcut WEEKLY Qty: 2 0RF Rx Instructions: for 4 weeks Follow-up/Referrals: Merle Goff APRN [Primary Care Provider, Internal Medicine]
[2025-03-17] MEDS: KETOROLAC (*BKC) 60 MG/2 ML VIAL IM (17:08)
[2025-03-17] MEDS: CYCLOBENZAPRINE HCL 10 MG TABLET PO (17:08)
[2025-03-17 17:11] VITALS: BP 135/88; PULSE 94; RESP 19; O2SAT 99
== END 2025-03-17 17:52 | disposition home or self-care (01) ==
PROVIDERS: Emergency Provider Emergency Medicine; PCP Nurse Practitioner
DX: M54.50 Low back pain, unspecified (principal)
CPT/HCPCS: 72100; 96372; 99283; A9270; J1885